=== PATIENT | female | born 1990 | race Caucasian/White ===

== ENCOUNTER 2022-11-11 15:58 | Emergency (ER) | payer BC ==
[~2022-11-11] VITALS: Ht 167.6 cm; Wt 95.3 kg
[2022-11-11 16:51] VITALS: BP 127/89; PULSE 92; RESP 18; TEMP 98.3; O2SAT 98
[2022-11-11 17:40] LABS: BASOPHILS % (AUTO) 0.2 % (0.0-2.0); EOSINOPHILS # (AUTO) 0.2 K/uL (0-0.4); HEMATOCRIT 42.1 % (36-48); HEMOGLOBIN 13.5 g/dL (12.0-16.0); LYMPHOCYTES # (AUTO) 2.4 K/uL (2.5-16.5); LYMPHOCYTES % (AUTO) 23.7 % (20.5-51.1); MEAN CORPUSCULAR HEMOGLOBIN 27 pg (27-31); MEAN CORPUSCULAR HGB CONC 32 g/dL (33-37); MEAN CORPUSCULAR VOLUME 83.2 fL (80-94); MONOCYTES # (AUTO) 0.7 K/uL (0.8-1.0); MONOCYTES % (AUTO) 6.8 % (1.7-9.3); NEUTROPHILS # (AUTO) 6.9 K/uL (1.8-7.7); NEUTROPHILS % (AUTO) 67.3 % (42.2-75.2); PLATELET COUNT (AUTO) 287 K/uL (140-450); RED BLOOD CELL COUNT(AUTO) 5.06 MIL/uL (4.20-5.40); RED CELL DISTRIBUTION WIDTH 14.2 % (11.6-13.7); WHITE BLOOD COUNT (AUTO) 10.3 K/uL (4.8-10.8)
[2022-11-11 17:52] LABS: INR 1.04 (0.8-1.2); PARTIAL THROMBOPLASTIN TIME 30.6 secs (22-35.6); PROTHROMBIN TIME 10.9 secs (10.8-13.4)
[2022-11-11] MEDS ORDERED: KETOROLAC 30 MG/ML VIAL IVP ONE (17:55)
[2022-11-11 17:59] LABS: ALBUMIN 3.4 g/dL (3.4-5.0); ANION GAP 14.5 (8-16); CALCIUM 8.4 mg/dL (8.5-10.1); CARBON DIOXIDE 26.1 mmol/L (21-32); CREATININE 0.9 mg/dL (0.6-1.3); POTASSIUM 3.6 mmol/L (3.5-5.1); TOTAL BILIRUBIN 0.6 mg/dL (0.0-1.0); TOTAL PROTEIN, SERUM 7.5 g/dL (6.4-8.2)
[2022-11-11] MEDS ORDERED: KETOROLAC 60 MG/2 ML VIAL IM ONE ×2 (19:08→19:15)
[2022-11-11] MEDS ORDERED: MORPHINE SULFATE 4 MG/ML SYR IVP ONE (20:05)
[2022-11-11] MEDS ORDERED: ONDANSETRON 4 MG/2 ML VIAL IVP ONE (20:10)
[2022-11-11 20:45] LABS: BILIRUBIN,URINE 1+ (NEGATIVE); BLOOD, URINE 3+ (NEGATIVE); LEUKOCYTE ESTERASE ,URINE TRACE (NEGATIVE); NITRITE, URINE NEGATIVE (NEGATIVE); PROTEIN,URINE 1+ (NEGATIVE); UGLUCOSE NEGATIVE (NEGATIVE)
[2022-11-11 20:48] LABS: APPEARANCE,URINE CLOUDY (CLEAR); COLOR,URINE AMBER (YELLOW)
[2022-11-11 20:53] LABS: ICTOTEST NEGATIVE (NEGATIVE)
[2022-11-11 20:55] LABS: RBC,URINE 20-50 /HPF (0-5)
[2022-11-11 20:56] LABS: BACTERIA,URINE FEW /HPF (None Seen); SQUAMOUS EPITHELIAL CELL,UR 0-3 (FEW) /LPF (0-3 (FEW)); WBC,URINE 0-5 /HPF (0-5)
[2022-11-11] MEDS ORDERED: ONDA-188 PO (22:00)
[2022-11-11] MEDS ORDERED: ACET-8905 PO (22:00)
== END 2022-11-11 22:13 | disposition home or self-care (01) ==
LOC: MED 15:58
DX: N93.9 Abnormal uterine and vaginal bleeding, unspecified (principal); R10.84 Generalized abdominal pain; Z79.899 Other long term (current) drug therapy
CPT/HCPCS: 36415; 74176; 76856; 80053; 81001; 81025; 85025; 85610; 85730; 86886; 86900; 86901; 93976; 96372; 96374; 96375; 99285; J1885; J2270; J2405; Q0092